=== PATIENT | male | born 1970 | race African-American/Black ===

== ENCOUNTER 2021-03-21 14:56 | Inpatient (IN) | payer OTHER ==
[~2021-03-21] VITALS: Ht 170.2 cm; Wt 72.8 kg
[2021-03-21 15:06] VITALS: BP 153/85
[2021-03-21 15:20] LABS: BE(vivo) -21.5 mmol/L (-2 to +3); HCO3 4.4 mmol/L (22.0-26.0); PO2 107.7 mmHg (80.0-100.0); pH 7.147 (7.360-7.450); sO2 96.6 % (92.0-98.0)
[2021-03-21 15:29] LABS: HEMATOCRIT 50.4 % (42.0-52.0); HEMOGLOBIN 17.3 gm/dL (14.0-18.0); MCHC 34.4 g/dL (28.0-37.0); MCV 81.3 fL (80.0-100.0); PLATELET COUNT 358 thou/uL (150-400); RBC 6.19 mil/uL (4.50-6.00); RDW 13.5 % (10.5-14.5); WBC 19.9 thou/uL (4.0-11.0)
[2021-03-21 15:47] LABS: CALCIUM 9.8 mg/dL (8.5-10.1); CREATININE 1.7 mg/dL (0.7-1.3); POTASSIUM 4.6 mmol/L (3.5-5.1); TOTAL BILIRUBIN 0.9 mg/dL (0.2-1.0); TOTAL PROTEIN 9.3 g/dL (6.4-8.2)
[2021-03-21 16:10] LABS: ABSOLUTE NEUTROPHILS 17.7 thou/uL (1.4-8.2); ANISOCYTOSIS SLIGHT
[2021-03-21 16:11] LABS: LARGE PLATELETS RARE
[2021-03-21 16:12] LABS: URINE BILIRUBIN NEGATIVE (Negative); URINE BLOOD 3+ (Negative); URINE CLARITY CLEAR; URINE COLOR YELLOW; URINE GLUCOSE-RANDOM* 2+ (Negative); URINE KETONES 3+ (Negative); URINE LEUKOCYTES-REFLEX NEGATIVE (Negative); URINE NITRITE-REFLEX NEGATIVE (Negative); URINE PROTEIN (DIPSTICK) 2+ (Negative); URINE SPECIFIC GRAVITY >= 1.030 (1.005-1.035); URINE UROBILINOGEN 0.2 E.U./dl (0.2-1.0)
[2021-03-21 16:21] LABS: BACTERIA-REFLEX 1-9 Few /HPF (None Seen); CRYSTALS None Seen /LPF (None Seen); HYALINE CASTS 0-3 Few /LPF (None Seen); SQUAMOUS 0-3 Few /LPF (0-3); URINE RBC 3-10 Few /HPF (NONE SEEN); URINE WBC-REFLEX None Seen /HPF (0-5)
[2021-03-21 16:40] LABS: MAGNESIUM 2.4 mg/dL (1.8-2.4); PHOSPHORUS 4.6 mg/dL (2.5-4.9)
[2021-03-21 18:32] VITALS: BP 135/70
--- NOTE | 2021-03-21 19:23 | NUR ---
PT ARRIVED FROM ER AT 1845. PT ALERT AND ORIENTED X4. AT BEDSIDE AND INFORMED ABOUT ICU VISITING POLICY AND PHONE NUMBER. PT ON INSULIN GTT. DR FRAIRE AT BEDSIDE TO TALK TO THE PATIENT. DKA PROTOCCOL STARTED. CONTINUE TO MONITOR.
[2021-03-21 19:49] VITALS: BP 127/74
[2021-03-21 19:50] LABS: ALBUMIN 3.2 g/dL (3.4-5.0); CALCIUM 8.3 mg/dL (8.5-10.1); CREATININE 1.4 mg/dL (0.7-1.3); MAGNESIUM 2.2 mg/dL (1.8-2.4); PHOSPHORUS 2.4 mg/dL (2.5-4.9); POTASSIUM 4.4 mmol/L (3.5-5.1)
[2021-03-21 20:49] VITALS: BP 135/63
[2021-03-21 21:49] VITALS: BP 119/53
[2021-03-21 23:49] VITALS: BP 140/74
[2021-03-21 23:52] LABS: ALBUMIN 2.8 g/dL (3.4-5.0); CALCIUM 8.4 mg/dL (8.5-10.1); CREATININE 1.5 mg/dL (0.7-1.3); PHOSPHORUS 1.5 mg/dL (2.6-4.7); POTASSIUM 3.8 mmol/L (3.5-5.1)
[2021-03-22] VITALS (24 sets, daily range): BP systolic 102–128; BP diastolic 48–76
[2021-03-22 04:40] LABS: ALBUMIN 2.6 g/dL (3.4-5.0); CALCIUM 8.2 mg/dL (8.5-10.1); CREATININE 1.4 mg/dL (0.7-1.3); MAGNESIUM 2.1 mg/dL (1.8-2.4); PHOSPHORUS 1.5 mg/dL (2.5-4.9); POTASSIUM 3.6 mmol/L (3.5-5.1)
--- NOTE | 2021-03-22 05:10 | NUR ---
Pt progressing toward goals. Anion gap initially 30, now down to 18. Blood sugar in ED was in 300's, now 107-150 with insulin gtt. Titrating gtt to keep BS between 90-150. Pt taking fluids without nausea or vomitting, voiding without difficulty. Urine output adequate.
[2021-03-22 07:30] LABS: ALBUMIN 2.6 g/dL (3.4-5.0); CALCIUM 8.6 mg/dL (8.5-10.1); CREATININE 1.2 mg/dL (0.7-1.3); MAGNESIUM 2.1 mg/dL (1.8-2.4); PHOSPHORUS 1.5 mg/dL (2.5-4.9)
[2021-03-22 07:36] LABS: POTASSIUM 3.8 mmol/L (3.5-5.1)
--- NOTE | 2021-03-22 10:16 | NUR ---
1013- nurse talked with Eriberto the director for home confinement services. If patient leaves the hospital, we must call [phone] because while patient in ICU, he is on karen. When he is discharged, he goes back to Home confinement with ankle strap/wellness instructor in place. Patient expressed this was all true and asked that I call him. 1015- Nurse talked with patients and updated her on patient status. She is coming to visit.
[2021-03-22 11:46] LABS: CALCIUM 8.3 mg/dL (8.5-10.1); CREATININE 1.2 mg/dL (0.7-1.3); POTASSIUM 3.4 mmol/L (3.5-5.1)
[2021-03-22 11:50] LABS: ALBUMIN 2.5 g/dL (3.4-5.0); PHOSPHORUS 1.7 mg/dL (2.5-4.9)
[2021-03-22 16:28] LABS: CALCIUM 8.6 mg/dL (8.5-10.1); CREATININE 1.1 mg/dL (0.7-1.3); POTASSIUM 3.6 mmol/L (3.5-5.1)
[2021-03-22 22:30] LABS: HEMATOCRIT 37.4 % (42.0-52.0); MCH 27.6 pg (26.0-34.0); MCV 78.9 fL (80.0-100.0); RBC 4.74 mil/uL (4.50-6.00); RDW 13.1 % (10.5-14.5); WBC 10.7 thou/uL (4.0-11.0)
[2021-03-22 22:32] LABS: HEMOGLOBIN 13.1 gm/dL (14.0-18.0)
[2021-03-23] VITALS (16 sets, daily range): BP systolic 108–135; BP diastolic 47–77
[2021-03-23 03:24] LABS: ABSOLUTE NEUTROPHILS 6.2 thou/uL (1.4-8.2); BASOPHILS 0.4 % (0.0-2.0); EOSINOPHILS 0.4 % (0.0-3.0); HEMATOCRIT 37.8 % (42.0-52.0); HEMOGLOBIN 13.5 gm/dL (14.0-18.0); LYMPHOCYTES 20.5 % (24.0-44.0); MCH 28.1 pg (26.0-34.0); MCHC 35.8 g/dL (28.0-37.0); MCV 78.5 fL (80.0-100.0); MONOCYTES 10.7 % (1.0-8.0); PLATELET COUNT 312 thou/uL (150-400); RBC 4.82 mil/uL (4.50-6.00); RDW 13.4 % (10.5-14.5); WBC 9.2 thou/uL (4.0-11.0)
[2021-03-23 03:37] LABS: ALBUMIN 2.5 g/dL (3.4-5.0); CALCIUM 8.8 mg/dL (8.5-10.1); CREATININE 1.2 mg/dL (0.7-1.3); TOTAL BILIRUBIN 0.6 mg/dL (0.2-1.0); TOTAL PROTEIN 6.2 g/dL (6.4-8.2)
--- NOTE | 2021-03-23 06:06 | NUR ---
RESTING QUIETLY FOR MOST OF SHIFT, INDEPENDENT, WILLING TO LEARN ABOUT INSULIN AND DIABETES BUT NEEDS EXTENSIVE DIABETIC EDUCATION. SR, RA, BP STABLE/
--- NOTE | 2021-03-23 08:39 | NUR ---
PT IS PROGRESSING TOWARDS DISCHARGE, BARRIERS AT THIS TIME IS DEPLETED POTASSIUM LEVEL, WHICH WILL BE REPLACED THEN CHECKED, BUT MORE SO THE NEED MORE MEDICAL DEVICES/MEDICATION POST DC TO MANAGE DIABETES. RN SPOKE WITH PEEL OVEN TENDER OF [facility] IN [place] ([address] FOR PT'S NEEDING FEDERAL SUPERVISION). PER [facility], PEEL OVEN TENDER, IF [facility] CAN SEND VIA FAX THE MED/DEVICES NEEDED FOR DM MANAGEMENT, TO THE [facility], THEN THEY WILL SUBMIT THE NEED TO [facility](ANOTHER GOVERNING ENTITY) WHICH WILL PROCESS THE REQUEST TO [facility](ANOTHER ENTITY) WHO WILL EITHER APPROVE/DECLINE, WHICH WILL PERMIT THE [facility] TO SEND THE PRESCRIPTION(S) TO A LOCAL [facility] NEAR BY THE PT'S RESIDENCY. RN WILL COMMUNICATE THIS WITH THE MD, WELL MISSY FOR THE WEEKEND
--- NOTE | 2021-03-23 15:00 | EKG ---
[address] [place] [employer] [address] ELECTROCARDIOGRAM REPORT Name: PRINCE DINA Room #: 241-P ADM IN M.R.#: [id number] Admission: 03/21/21 Attend Phys: Priscilla Travis MD Discharge: Date of : 72 Report #: [id number] [facility] ED Test Date: 2021-03-21 Test Time: 17:08:24 Pat Name: PRINCE ARROYO Department: Room: [facility] Gender: M Gas Truck Driver: JCHAIJEFF : 1970 Requested By: Dexter Fournier Order Number: [id number] MD: Dante Ghosh Measurements Intervals [place] Rate: 85 P: 69 NE: 124 QRS: 71 QRSD: 89 T: 52 QT: 438 QTc: 521 Interpretive Statements Sinus rhythm No significant abnormality No previous ECG available for comparison Electronically Signed On 03-23-2021 15:00:40 CDT by Dante Ghosh [email or web address] <ELECTRONICALLY SIGNED> By: Dante Ghosh MD, [facility] 03/23/21 1500 1708 1708 Dante Ghosh MD, FACC /EPI
[2021-03-24 02:05] LABS: ESTIMATED AVERAGE GLUCOSE > 398 mg/dL (()); GLYCOHEMOGLOBIN (HGB A1C) > 15.5 % (4.8-5.6)
--- NOTE | 2021-03-24 07:53 | NUR ---
PT AMBULATING IN HALLWAYS AND IS TOLERATING WELL. BATHROOM PRIVLEGES. DENIES PAIN. POSSIBLE DC HOME 03/25. RESTING COMFORTABLY. NO NEEDS VOICED. CALL LIGHT WITHIN REACH. FREQUENT OBSERVATION.
[2021-03-24 07:55] VITALS: BP 133/85
[2021-03-24] MEDS ORDERED: HUMALOG100 UNIT/1 SUBQ (09:07)
[2021-03-24] MEDS ORDERED: ONE TOUCH DELI1 EAC1 SUBQ (09:08)
[2021-03-24] MEDS ORDERED: ONE TOUCH ULTR1 EACH SUBQ (09:09)
--- NOTE | 2021-03-24 10:34 | NUR ---
ADV. DIR. CONSULT [id number] WAS COMPLETED BY THIS ON WEDNESDAY, MARCH 24, 2021 @ 1036 HOURS. CONSULT PRINTED ON 03/21/21 @ 2237 HOURS.
--- NOTE | 2021-03-24 10:44 | NUR ---
PT ADMITTED RELATED TO DKA. PT IS A NEWLY DIAGNOSED DIABETIC. CM REVEIWED CHART AND SPOKE WITH CARE TEAM. CM MET WITH PT AT BEDSIDE THIS DAY. PT APPEARED TO BE A&O X4. CM ROLE INTERDUCED. PT INDICATED THAT HE RESIDES IN A HOUSE WITH HIS SPOUSE WITH NO STEPS TO ENTER AND NO STEPS INSIDE. PT INDICATED THAT HE JUST GOT [facility] OF [facility] SO TO [facility] WILL COVER ANY MEDICATIONS AND SUPPLIES HE NEEDS UPON DC. DANIS SPOKE WITH LEO MANNING P: F: . SHE INDICATED SHE NEEDED ANY NEEDED MEDICATIONS AND SCRIPTS FAXED TO HER FOR APPROVAL AND THEN CAN PAY FOR THEM AT OUR OP PHARMACY. CM TO FAX SCRIPTS. PT IS MEDIALLY STABLE TO DC HOME AFTER MEDS ARE FILLED. CM ASSISTING.
[2021-03-24 10:49] VITALS: BP 135/76
[2021-03-24 13:42] VITALS: BP 135/76
--- NOTE | 2021-03-24 14:35 | NUR ---
RN went over all discharge educations and printed all materials for for patient. All questions answered. IV out. Patient discharged to home and wheeled out in wheelchair by LABOR CONTRACTOR.
== END 2021-03-24 13:00 | disposition home or self-care (01) | DRG 638 ==
LOC: ER 14:56 → EROBS 16:33 → ICU 17:31 → 4W 03-23 16:30
PROVIDERS: Emergency Medicine; ADMIT Hospitalist; ATTEND Hospitalist
DX: E11.10 Type 2 diabetes mellitus with ketoacidosis without coma (principal); E87.1 Hypo-osmolality and hyponatremia; N17.9 Acute kidney failure, unspecified; D72.829 Elevated white blood cell count, unspecified; F17.210 Nicotine dependence, cigarettes, uncomplicated; I10 Essential (primary) hypertension; E78.5 Hyperlipidemia, unspecified; E87.6 Hypokalemia; Z91.14 Patient's other noncompliance with medication regimen
CPT/HCPCS: 10045; 10078

== ENCOUNTER 2021-12-24 17:33 | Emergency (ER) | payer OTHER ==
[~2021-12-24] VITALS: Ht 170.2 cm; Wt 77.1 kg
[~2021-12-24 17:33] MED LIST: HUMALOG100 UNIT/1 SUBQ; ONE TOUCH DELI1 EAC1 SUBQ; ONE TOUCH ULTR1 EACH SUBQ
[2021-12-24] MEDS ORDERED: NAPROSYN500 MG PO (18:54)
[2021-12-24] MEDS ORDERED: FLEXERIL PO (18:54)
[2021-12-24 19:45] VITALS: BP 129/76
== END 2021-12-24 19:57 | disposition home or self-care (01) ==
LOC: ER 17:33
DX: S13.9XXA Sprain of joints and ligaments of unspecified parts of neck, initial encounter (principal); S33.5XXA Sprain of ligaments of lumbar spine, initial encounter; E11.9 Type 2 diabetes mellitus without complications; F32.9 Major depressive disorder, single episode, unspecified; F17.210 Nicotine dependence, cigarettes, uncomplicated; V89.2XXA Person injured in unspecified motor-vehicle accident, traffic, initial encounter; Y93.89 Activity, other specified; Y92.89 Other specified places as the place of occurrence of the external cause; Y99.8 Other external cause status